=== PATIENT | male | born 1955 | race Caucasian/White ===

== ENCOUNTER 2017-11-06 20:34 | Emergency (ER) | payer SELFPAY ==
[2017-11-06 20:41] VITALS: TEMP 97.2
[2017-11-06 21:49] LABS: BASO % 0.7 % (0.0-2.0); EOS # 0.1 K/uL (0.0-0.7); EOS % 1.5 % (0.0-4.0); HEMOGLOBIN 13.7 g/dL (12.0-18.0); LYMPH # 1.5 K/uL (1.0-4.3); LYMPH % 23.9 % (20.0-40.0); MEAN CELL VOLUME 85.8 fL (80.0-94.0); MEAN CORPUSCULAR HEMOGLOBIN 29.6 pg (27.0-31.0); MEAN CORPUSCULAR HGB CONC 34.5 g/dL (33.0-37.0); MEAN PLATELET VOLUME 9.3 fL (7.2-11.7); MONO # 0.4 K/uL (0.0-0.8); MONO % 5.6 % (0.0-10.0); NEUT # 4.4 K/uL (1.8-7.0); NEUT % 68.3 % (50.0-75.0); NRBC % 0.1 % (0.0-2.0); RBC 4.64 Mil/uL (4.40-5.90); RED CELL DISTRIBUTION WIDTH 14.6 % (11.5-14.5); WHITE BLOOD COUNT 6.5 K/uL (4.8-10.8)
[2017-11-06 22:02] LABS: ALB/GLOB RATIO 1.6 (1.0-2.1); ALBUMIN 4.1 g/dL (3.5-5.0); ALT/SGPT 75 U/L (21-72); AST/SGOT 39 U/L (17-59); BLOOD UREA NITROGEN 9 mg/dL (9-20); CALCIUM 9.1 mg/dl (8.6-10.4); GFR NON-AFRICAN AMERICAN > 60
[2017-11-06 22:51] VITALS: RESP 13
[2017-11-06 23:12] VITALS: BP 159/98; PULSE 68; O2SAT 96
--- NOTE | 2017-11-07 04:34 | C.PDOC ---
History Of Present Illness 62-year-old male presents to the ED for evaluation after he noted his blood pressure to be high at home. Patient admits he has not taken his blood pressure medication in over one week. He denies fever, chills, chest pain, and has no physical complaints at this time. Chief Complaint (Nursing): High Blood Pressure History Per: Patient History/Exam Limitations: no limitations Onset/Duration Of Symptoms: Hrs Current Symptoms Are (Timing): Still Present Associated Symptoms: denies: Chest Pain Exacerbating Factor(s): Pos: Recently Missed Doses Of Medication Additional History Per: Patient Past Medical History Reviewed: Historical Data, Nursing Documentation, Vital Signs Vital Signs: Last Vital Signs Temp 97.2 F L 11/06/17 20:36 Pulse 68 11/06/17 23:11 Resp 13 11/06/17 23:11 BP 159/98 H 11/06/17 23:11 Pulse Ox 96 11/07/17 04:39 - Medical History PMH: HTN, Hypercholesterolemia, Hypothyroidism Surgical History: No Surg Hx Family History: States: Unknown Family Hx - Social History Hx Alcohol Use: Yes Hx Substance Use: No - Immunization History Hx Tetanus Toxoid Vaccination: No Hx Influenza Vaccination: No Hx Pneumococcal Vaccination: No Review Of Systems Constitutional: Negative for: Fever, Chills Cardiovascular: Positive for: Other (elevated blood pressure ). Negative for: Chest Pain Physical Exam - Physical Exam Appears: Non-toxic, No Acute Distress Skin: Normal Color, Warm, Dry Head: Atraumatic, Normacephalic Eye(s): bilateral: Normal Inspection Oral Mucosa: Moist Neck: Supple Chest: Symmetrical, No Deformity, No Tenderness Cardiovascular: Rhythm Regular, No Murmur Respiratory: Normal Breath Sounds, No Rales, No Rhonchi, No Wheezing Extremity: Normal ROM, Capillary Refill (less than 2 seconds ) Neurological/Psych: Oriented x3, Normal Speech, Normal Cognition ED Course And Treatment - Laboratory Results Result Diagrams: 11/06/17 21:44 11/06/17 21:44 ECG: Interpreted By Me, Viewed By Me ECG Rhythm: Sinus Rhythm Rate From EC O2 Sat by Pulse Oximetry: 96 (on RA) Pulse Ox Interpretation: Normal Medical Decision Making Medical Decision Making: Impression: 62 year old male with elevated blood pressure Progress: Bloodwork, CXR, EKG ordered and reviewed. Microzide PO, Norvasc PO, and Zestril PO given. Patient is given blood pressure medication and his pressure is now 160/99. Patient is resting comfortably, showing no signs of distress and is stable for discharge. Patient is advised to follow up with his PMD within 2-3 days for further evaluation. Advised to return to the ED if symptoms persist or worsen. Disposition - Disposition Referrals: Jorge L Bertrand, [Non-Staff] - Disposition: HOME/ ROUTINE Disposition Time: 23:40 Condition: IMPROVED Additional Instructions: ADELINA VERAS, thank you for letting us take care of you today. Your provider was Sudheer Bose DO and you were treated for HIGH BLOD PRESSURE. The emergency medical care you received today was directed at your acute symptoms. If you were prescribed any medication, please fill it and take as directed. It may take several days for your symptoms to resolve. Return to the Emergency Department if your symptoms worsen, do not improve, or if you have any other problems. Please contact your doctor or call one of the physicians/clinics you have been referred to that are listed on the Patient Visit Information form that is included in your discharge packet. Bring any paperwork you were given at discharge with you along with any medications you are taking to your follow up visit. Our treatment cannot replace ongoing medical care by a primary care provider outside of the emergency department. Thank you for allowing the [facility] team to be part of your care today. TAKE YOUR MEDICATION EVERYDAY. DO NOT WAIT UNTIL YOU RUN OUT OF MEDICATION. Follow up with your primary care doctor in 2-3 days for re-evaluation and further management. Prescriptions: amLODIPine [Norvasc] 10 mg PO DAILY #7 tab Lisinopril/Hydrochlorothiazide [Lisinopril-Hctz 20-12.5 mg Tab] 1 each PO DAILY #7 tablet Instructions: High Blood Pressure in Adults Forms: [employer] (Maldivian) - Clinical Impression Clinical Impression: Hypertension - Scribe Statement The provider has reviewed the documentation as recorded by the Scribe (Leigh Araya) Provider Attestation: All medical record entries made by the Scribe were at my direction and personally dictated by me. I have reviewed the chart and agree that the record accurately reflects my personal performance of the history, physical exam, medical decision making, and the department course for this patient. I have also personally directed, reviewed, and agree with the discharge instructions and disposition.
--- NOTE | 2017-11-07 08:24 | RAD ---
Date of service: 11/06/2017 PROCEDURE: CHEST RADIOGRAPH, 1 VIEW HISTORY: chest pain COMPARISON: None available. FINDINGS: LUNGS: The lungs are well inflated and clear. PLEURA: No pneumothorax or pleural fluid seen. CARDIOVASCULAR: Normal. OSSEOUS STRUCTURES: No significant abnormalities. VISUALIZED UPPER ABDOMEN: Normal. OTHER FINDINGS: None. IMPRESSION: No active pulmonary disease.
--- NOTE | 2017-11-07 19:47 | CARD ---
APPROVED REPORT Date of service: 11/06/2017 EKG Measurement Heart [id number] <Conclusion> Normal sinus rhythm Septal infarct, age undetermined Abnormal ECG
== END 2017-11-06 23:55 | disposition home or self-care (01) ==
LOC: C.ER 20:34
DX: I10 Essential (primary) hypertension (principal); E78.00 Pure hypercholesterolemia, unspecified; E03.9 Hypothyroidism, unspecified